=== PATIENT | female | born 1975 | race Caucasian/White ===

== ENCOUNTER 2018-06-15 05:35 | Day surgery (SDC) | payer OTHER ==
[~2018-06-15] VITALS: Ht 167.6 cm; Wt 81.6 kg
--- NOTE | ~2018-06-15 | PATH ---
[facility] [place] [address] PATHOLOGY RPT PROCEDURE Name: THERESE BROWN Room #: DEP [facility]#: [id number] Admission: 06/15/18 Date of : 75 Discharge: 06/15/18 Report #: [id number] Path Case #: [id number] [facility] Accession Number: [id number] . 01 Material submitted: . ENODMETRIAL CURETTAGE AND POLYPS . 01 Clinical history: . Menometrorrhagia . 02 Diagnosis: Uterus, endometrial curettage and polyps: - Compatible with fragments of endometrial polyps; negative for atypia or malignancy - Background endometrium showing features of breakdown including fibrin; negative for hyperplasia or malignancy. - Strips of benign endocervical epithelium with no evidence of dysplasia. LBQ/06/16/2018 . 02 Comment: Findings are suggestive of anovulatory cycles or unopposed estrogen exposure. Please correlate clinically. (IUV/db; 06/16/18) . 02 Electronically signed: . Cee Nuñez MD, Pathologist NPI- [id number] . 01 Gross description: . Received in formalin labeled "Therese Brown, endometrial curettings and polyps," is blood-tinged mucoid material containing small fragments of gallego membranous tissue, measuring 2.4 x 2.1 x 0.5 cm in aggregate dimensions. The specimen is submitted entirely in cassette A1. (TSD; 06/15/2018) TOB/TOB . 02 Pathologist provided ICD-10: N84.0 . 02 CPT . 034602 Specimen Comment: A courtesy copy of this report has been sent to Specimen Comment: [phone], . Specimen Comment: Report sent to / DR LOUIS Specimen Comment: A duplicate report has been generated due to demographic updates. Performed at: 01 [facility] [address] [place] [address] PATHOLOGY RPT PROCEDURE Name: THERESE BROWN Room #: DEP [facility].#: [id number] Admission: 06/15/18 Date of : 75 Discharge: 06/15/18 Report #: [id number] Path Case #: [id number] [address], [place], [place] [id number] MD Joshua Ness MD Phone: [phone] Performed at: [address] [facility] [address] [id number] MD Cee Nuñez MD Phone: [phone]
[~2018-06-15 05:35] MED LIST: MEDROXYPROGESTE10 MG PO
[2018-06-15 09:41] VITALS: BP 102/68
[2018-06-15 12:27] VITALS: BP 102/68
== END 2018-06-15 12:55 | disposition home or self-care (01) ==
LOC: OR 05:35 → TBA 05:36 → OR 11:39
DX: N84.0 Polyp of corpus uteri (principal); D25.0 Submucous leiomyoma of uterus; Z79.899 Other long term (current) drug therapy; Z98.890 Other specified postprocedural states
CPT/HCPCS: 50010; 50101; 54171; 54173; 57160; 62110; 62900; 70005